=== PATIENT | female | born 1990 | race Caucasian/White ===

== ENCOUNTER 2017-01-05 20:56 | Emergency (ER) | payer MEDICAID ==
[~2017-01-05 20:56] MED LIST: IRON325 M1 PO; MOTRIN-DPS800 MG PO; PRENATAL VIT1 TAB PO; TYLENOL #3 DPS1 TAB PO
--- NOTE | 2017-01-09 19:04 | ER ---
ADMIT: 01/05/2017 RM/LOC: ER [facility] MR#: [id number] [facility] [address] [place] [id number] RICHELLE COATS [address] [place] [address] Emergency Room Report SEX: F AGE: 26 : 1990 CORRECTED: 01/06/2017 0848 NJV DATE: 01/05/2017 CHIEF COMPLAINT: Allergic reaction. HISTORY OF PRESENT ILLNESS: A 26-year-old white female, who presents after noticing some skin lesions and swollen left eye 20 minutes prior to arrival. I believe this could be related to a new steak sauce she was trying. Denies any history of any known allergies. States the lesions on her skin are itching, mildly raised. Denies any known other inciting things. Denies any insect bite sting, new detergent, soaps, exposure to new weeds. She does have problems of seasonal allergies. Denies any difficulty breathing, shortness of breath. Does have some abdominal pain and nausea. She states she first noticed it when she was eating tonight, improving at this point. Has some redness and itching, left greater than right eye. COURSE IN THE EMERGENCY ROOM: GENERAL: The patient was seen and examined. Afebrile and nontoxic. No acute distress. VITAL SIGNS: 97% on room air. SKIN: Does have some what I feel urticarial asymmetric rash primarily on the trunk with some left eye swelling. EXTREMITIES: Nontender. No pedal edema. HEENT: She does have some left greater than right periorbital edema and tenderness. She is able to open her eyes. Vision is intact. Extraocular muscles are intact. Trachea is midline. No swelling. No lymphadenopathy. LUNGS: Clear bilaterally. HEART: Regular. ABDOMEN: Soft and nontender. She is alert and oriented. She was given 60 mg of prednisone p.o. as well as Benadryl 50 mg p.o. and loratadine 10 mg p.o. She was allowed to sit for an hour, re-evaluated, states she is feeling better. Does not think she is getting worse at this point. ADMIT: 01/05/2017 RM/LOC: ER [facility] MR#: [id number] [id number] INDIO COATSICIA [address] [place] [address] Emergency Room Report SEX: F AGE: 26 : 1990 IMPRESSION: 1. Urticaria. 2. Left eye swelling. DISPOSITION: The patient will be started on prednisone 20 mg p.o. daily for 5 days. She is to use Benadryl every 6 hours as needed for itching. Cool compress to the eyes as needed. Activity as tolerated. Return with any worsening signs or symptoms or follow up with Dr. Bishop as needed. Questions sought and answered to the best of my ability and to the patient's satisfaction. Discharged in stable condition. ALEXX Jean / Drew Ashford MD / valerie JOB #: [id number] CC: Drew Ashford MD, Attending Physician Zeferino Bishop MD, Family Physician CORRECTED: 01/06/2017 0848 SAM
== END 2017-01-05 22:20 | disposition home or self-care (01) ==
LOC: ER 20:56
DX: L50.9 Urticaria, unspecified (principal); R22.0 Localized swelling, mass and lump, head